=== PATIENT | female | born 1980 | race Caucasian/White ===

== ENCOUNTER 2022-12-26 06:53 | Day surgery (SDC) | payer BC ==
[2022-12-26] MEDS ORDERED: Lactated Ringers 1,000 ML IV SCH (07:00)
[2022-12-26] MEDS ORDERED: Lactated Ringers 1,000 ML IV ONE (07:13)
[2022-12-26] MEDS ORDERED: KEFZOL 1 GM** 3 G in Sodium Chloride 0.9% 50 ML 50 ML IV SCH (07:45)
[2022-12-26] MEDS ORDERED: Decadron 4 MG INJ ONE (08:05)
[2022-12-26] MEDS ORDERED: DIPRIVAN 200 MG/20 ML IV ONE ×2 (08:05)
[2022-12-26] MEDS ORDERED: Xylocaine-Mpf 2% 5 Ml Vial ONE ×2 (08:05)
[2022-12-26] MEDS ORDERED: Zofran 4 MG/2 ML VIAL ONE (08:05)
[2022-12-26] MEDS ORDERED: Quelicin Fliptop 200 MG/10 ML ONE (08:05)
[2022-12-26] MEDS ORDERED: SUBLIMAZE 100 MCG/2 ML ONE ×3 (08:06→09:30)
[2022-12-26] MEDS ORDERED: DEXMEDETOMIDINE 80 MCG/20ML-NS IV ONE (08:08)
[2022-12-26] MEDS ORDERED: Pre-Attached Lta Kit TP ONE (08:13)
[2022-12-26] MEDS ORDERED: BRIDION 200MG/2ML IV ONE (08:40)
[2022-12-26] MEDS ORDERED: Proair Hfa MDI IH ONE (08:49)
[2022-12-26] MEDS ORDERED: Ketamine HCl 50 MG/ML ONE (08:49)
[2022-12-26 10:31] VITALS: BP 126/73; PULSE 94; O2SAT 96
--- NOTE | 2022-12-27 10:35 | OP ---
SURGERY DATE/TIME: 12/26/2022 0807 PREOPERATIVE DIAGNOSIS: Abnormal uterine bleeding. POSTOPERATIVE DIAGNOSIS: Abnormal uterine bleeding. PROCEDURE: Hysteroscopy D&C with NovaSure ablation. SURGEON: Shaan Calderon D.O. LEADITE WORKER: Pita Joyner surgical first assistant. ANESTHESIA: General. ESTIMATED BLOOD LOSS: Minimal. COMPLICATIONS: None. INDICATIONS: The risks, benefits, indications and alternatives of the procedure were reviewed with the patient prior to procedure. The patient understood the risk of infection, bleeding, bowel injury, bladder injury, ureteral injury and uterine perforation associated with the surgery and desires to have this surgery as a possible means to alleviate her current medical condition. DESCRIPTION OF PROCEDURE AND FINDINGS: At this point the patient is taken to the operating room, given general sedation, placed in dorsal lithotomy position, prepped and draped in the usual sterile fashion. A weighted speculum is then placed into the vagina and the anterior lip of the cervix grasped with a single tooth tenaculum. Endocervical dilators were advanced through the endocervical canal as a means to dilate the cervix and the uterus sounded approximately 9 cm. From this point, a 5 mm hysteroscope was then placed into the fundus of the uterus where visualization appeared to be within normal limits with no gross abnormalities that were noted. The hysteroscope was removed and the curette was then placed into the fundus of the uterus and curettage was performed in all quadrants of the uterus retrieving a mild to moderate amount of tissue. From this point, the instrument was removed and the NovaSure instrument was then used taken through the endocervical region towards the fundal region and retracted approximately 1 cm with a length of 6 cm and a width of 3.2 cm where the machine was turned on for an ablative time of 57 seconds. After complete ablation, the NovaSure was disengaged and removed from the uterine cavity without complication. From this point all instruments were removed from the patient's vaginal region. The patient was then taken out of the dorsal lithotomy position, was then taken to the recovery room in stable condition. All instruments and laps were accounted for x2.
== END 2022-12-26 10:35 | disposition home or self-care (01) ==
LOC: SDC 06:53
PROVIDERS: ATTEND Obstetrics & Gynecology
DX: N93.9 Abnormal uterine and vaginal bleeding, unspecified (principal)
CPT/HCPCS: 81025; J0330; J0690; J1100; J2405; J2704; J3010; A9270-GY